=== PATIENT | female | born 1995 | race Caucasian/White ===

== ENCOUNTER 2021-09-14 23:49 | Emergency (ER) | payer OTHER ==
[2021-09-15 00:26] VITALS: BP 114/72; PULSE 96; TEMP 98.6; BMI 24.9
[2021-09-15] MEDS ORDERED: diphenhydrAMINE HCL 25 MG CAPSULE (FP) PO ONE ×2 (02:51→03:35)
[2021-09-15] MEDS ORDERED: HYDROCORTISONE 0.5% TOPICAL OINTMENT TUBE TP ONE (02:51)
== END 2021-09-15 03:54 | disposition home or self-care (01) ==
LOC: JER 23:49
DX: R21 Rash and other nonspecific skin eruption (principal)
CPT/HCPCS: 99283-25